=== PATIENT | female | born 1950 | race Caucasian/White ===

== ENCOUNTER 2018-02-08 05:55 | Day surgery (SDC) | payer MEDICARE, OTHER ==
[2018-02-04 14:26] LABS: BASOPHILS % (AUTO) 0.5 % (0-1); EOSINOPHILS # (AUTO) 0.2 X10'3 (0-0.9); EOSINOPHILS % (AUTO) 2.4 % (0-6); LYMPHOCYTES # (AUTO) 2.1 X10'3 (1.1-4.8); LYMPHOCYTES % (AUTO) 30.8 % (21-51); MEAN CORPUSCULAR HEMOGLOBIN 29.8 PG (27.0-31.0); MEAN CORPUSCULAR HGB CONC 33.8 % (33.0-36.5); MEAN CORPUSCULAR VOLUME 88.1 FL (78-98); MEAN PLATELET VOLUME 7.7 FL (7.4-10.4); MONOCYTES # (AUTO) 0.4 X10'3 (0-0.9); MONOCYTES % (AUTO) 6.4 % (2-12); NEUTROPHILS # (AUTO) 4.1 X10'3 (1.8-7.7); NEUTROPHILS % (AUTO) 59.9 % (42-75); PRE OP HEMATOCRIT 41.6 % (35.0-45.0); PRE OP HEMOGLOBIN 14.1 g/dL (12.0-16.0); PRE OP PLATELET COUNT 326 X10'3 (140-440); RED BLOOD COUNT 4.73 X10'6 (4.20-5.60); RED CELL DISTRIBUTION WIDTH 15.7 % (11.5-14.5)
[2018-02-04 14:37] LABS: PRE OP PROTIME 10.1 SECONDS (9.0-12.0)
[2018-02-04 14:41] LABS: HEMOGLOBIN A1C 6.2 % (4.5-6.2)
[2018-02-04 14:49] LABS: ALBUMIN 3.4 G/DL (3.4-5.0); ALBUMIN/GLOBULIN RATIO 1.1 (1.1-1.5); ALKALINE PHOSPHATASE 59 IU/L (46-116); BLOOD UREA NITROGEN 20 MG/DL (7-18); CALCIUM 8.9 MG/DL (8.5-10.1); CHLORIDE 104 MMOL/L (99-107); PRE OP ALT 27 U/L (30-65); PRE OP ANION GAP 8 (8-16); PRE OP AST 17 U/L (10-37); PRE OP BILIRUB, TOTAL 0.5 MG/DL (0.0-1.0); PRE OP GLUCOSE 103 MG/DL (70-104); PRE OP POTASSIUM 4.3 MMOL/L (3.4-5.1); PRE OP SODIUM 141 MMOL/L (135-145); TOTAL CARBON DIOXIDE 29.5 MMOL/L (24-32); TOTAL PROTEIN 6.5 G/DL (6.4-8.2); eGFR 55 ML/MIN
[~2018-02-08] VITALS: Ht 162.6 cm; Wt 89.1 kg
[2018-02-08] VITALS (17 sets, daily range): BP systolic 98–158; BP diastolic 50–93
[~2018-02-08 05:55] MED LIST: ATOR10TA87 PO; CETI-102 PO; LEVO112T5 PO; METF500T7 PO; PREVCR VG; RAMI2.5C2 PO; ceFOXitin 2 GM ADDvantage bag 100 ML IV ONE; famotidine 20mg tablet PO ONE
[2018-02-08] MEDS ORDERED: LIDOcaine 1% (10mg/ml) 2ml vial ONE (06:12)
[2018-02-08] MEDS: ringers solution, lacted 1,000 ML IV SCH ×5 (06:13→23:11)
[2018-02-08] MEDS ORDERED: ceFAZolin 1000mg inj ONE (06:54)
[2018-02-08] MEDS ORDERED: BUPIVAcaine/PF 2.5mg/ml (0.25%) 10ml vial ONE (06:54)
[2018-02-08] MEDS ORDERED: clindamycin phosphate 40gm vag cream ONE (06:54)
[2018-02-08] MEDS ORDERED: LIDOcaine 1% 30ml preserv. free vial ONE (06:54)
[2018-02-08] MEDS ORDERED: vasoPRESSIN 20 units/ml inj. ONE (06:55)
[2018-02-08] MEDS ORDERED: morphine 10mg/ml inj. ONE (06:57)
[2018-02-08] MEDS ORDERED: ringers solution, lacted 1,000 ML IV SCH (08:04)
[2018-02-08] MEDS ORDERED: fentaNYL/PF 50MCG/1 ML 2ML syringe IV PRN ×2 (08:05)
[2018-02-08] MEDS ORDERED: hydrALAZINE 20mg/ml inj. IV PRN (08:05)
[2018-02-08] MEDS ORDERED: morphine 4 MG/ML inj SYRINge IV PRN ×2 (08:05)
[2018-02-08] MEDS ORDERED: ondansetron/PF 4mg/2ml inj IV PRN ×2 (08:05→10:50)
[2018-02-08] MEDS ORDERED: labetalol 20mg/4ml (5mg/ml) syringe IV PRN (08:05)
[2018-02-08] MEDS ORDERED: sevoflurane 250ml liquid IH ONE (08:10)
[2018-02-08] MEDS ORDERED: fentaNYL/PF 50MCG/1 ML 2ML syringe ONE (08:11)
[2018-02-08] MEDS ORDERED: midazolam 2 mg/2 ml injection ONE (08:11)
[2018-02-08] MEDS ORDERED: LIDOcaine 2% (20mg/ml) 5ml vial ONE (08:12)
[2018-02-08] MEDS ORDERED: propofol inj 20 ML IV ONE (08:12)
[2018-02-08] MEDS ORDERED: dexamethasone sod phosphate 4mg/ml inj. ONE (08:12)
[2018-02-08] MEDS ORDERED: rocuronium 10mg/ml inj IV ONE (08:13)
[2018-02-08] MEDS ORDERED: neostigmine methylsulfate 1 MG/ML 10ml vial ONE (08:13)
[2018-02-08] MEDS ORDERED: ondansetron/PF 4mg/2ml inj ONE (08:13)
[2018-02-08] MEDS ORDERED: glycopyrrolate 0.2mg/ml inj ONE (08:13)
[2018-02-08] MEDS ORDERED: atropine 0.4 mg/ml 20ml vial ONE (09:04)
[2018-02-08] MEDS ORDERED: fluoroscein sod 10% (100mg/ml) 5ml vial ONE (09:25)
[2018-02-08] MEDS ORDERED: HYDROcodone/acetaminophen 5mg/325mg tablet PO PRN ×2 (10:50)
[2018-02-08] MEDS ORDERED: ketorolac tromethamine 15mg/ml inj. IV PRN (10:50)
[2018-02-08] MEDS ORDERED: magnesium hydroxide 30ml (MOM) UD suspension PO PRN (10:50)
[2018-02-08] MEDS ORDERED: CADD PCA waste documentation MC PRN (10:50)
[2018-02-08] MEDS ORDERED: naloxone 0.4 mg/ml inj IV PRN (10:50)
[2018-02-08] MEDS ORDERED: normal saline 500ml IV soln 500 ML IV PRN (10:50)
[2018-02-08] MEDS ORDERED: diphenhydrAMINE 50 mg/ml inj IV PRN (10:50)
[2018-02-08] MEDS ORDERED: temazepam 15mg capsule PO PRN (10:50)
[2018-02-08] MEDS: HYDROmorphone/NS 1 mg/ml CADD 50 ML IV SCH ×7 (11:03→23:00)
[2018-02-08] MEDS: simethicone 80mg chew tab PO SCH ×2 (13:28→17:23)
[2018-02-08] MEDS: metFORMIN 500mg tablet PO SCH (17:23)
[2018-02-08] MEDS: docusate sod 100mg capsule PO SCH (20:18)
[2018-02-08] MEDS ORDERED: atorvastatin 10mg tablet PO SCH (21:00)
[2018-02-09] MEDS: HYDROmorphone/NS 1 mg/ml CADD 50 ML IV SCH ×7 (01:00→13:00)
[2018-02-09 04:28] LABS: BASOPHILS % (AUTO) 0.3 % (0-1); EOSINOPHILS # (AUTO) 0.1 X10'3 (0-0.9); EOSINOPHILS % (AUTO) 1.1 % (0-6); HEMATOCRIT 37.4 % (35.0-45.0); HEMOGLOBIN 12.6 g/dl (12.0-16.0); LYMPHOCYTES # (AUTO) 1.3 X10'3 (1.1-4.8); LYMPHOCYTES % (AUTO) 16.4 % (21-51); MEAN CORPUSCULAR HEMOGLOBIN 29.5 PG (27.0-31.0); MEAN CORPUSCULAR HGB CONC 33.6 % (33.0-36.5); MEAN CORPUSCULAR VOLUME 87.8 FL (78-98); MEAN PLATELET VOLUME 8.1 FL (7.4-10.4); MONOCYTES # (AUTO) 0.7 X10'3 (0-0.9); MONOCYTES % (AUTO) 8.7 % (2-12); NEUTROPHILS % (AUTO) 73.5 % (42-75); PLATELET COUNT 264 X10'3 (140-440); RED BLOOD COUNT 4.26 X10'6 (4.20-5.60); RED CELL DISTRIBUTION WIDTH 15.2 % (11.5-14.5); WHITE BLOOD COUNT 8.1 X10'3 (4.5-11.0)
[2018-02-09 07:00] VITALS: BP 99/89
[2018-02-09] MEDS ORDERED: levoTHYROXINE 112mcg tablet PO SCH (07:00)
[2018-02-09] MEDS ORDERED: cetirizine 10mg tablet PO SCH (08:00)
[2018-02-09] MEDS ORDERED: lisinopril 5mg tablet PO SCH (08:00)
[2018-02-09] MEDS: docusate sod 100mg capsule PO SCH (08:01)
[2018-02-09] MEDS: metFORMIN 500mg tablet PO SCH ×2 (08:01→17:30)
[2018-02-09] MEDS: simethicone 80mg chew tab PO SCH ×2 (08:01→13:10)
[2018-02-09] MEDS: ringers solution, lacted 1,000 ML IV SCH (10:46)
[2018-02-09 11:09] VITALS: BP 117/66
== END 2018-02-09 18:05 | disposition home or self-care (01) ==
LOC: PRE-OP 05:55 → SUR 3N 11:44 → PRE-OP 02-09 18:05
PROVIDERS: ATTEND Specialist
DX: D25.2 Subserosal leiomyoma of uterus (principal); N73.6 Female pelvic peritoneal adhesions (postinfective); N85.8 Other specified noninflammatory disorders of uterus; N39.46 Mixed incontinence; E66.9 Obesity, unspecified; N95.2 Postmenopausal atrophic vaginitis; I12.9 Hypertensive chronic kidney disease with stage 1 through stage 4 chronic kidney disease, or unspecified chronic kidney disease; E11.22 Type 2 diabetes mellitus with diabetic chronic kidney disease; N18.4 Chronic kidney disease, stage 4 (severe); E03.9 Hypothyroidism, unspecified; Z91.048 Other nonmedicinal substance allergy status; Z68.33 Body mass index [BMI] 33.0-33.9, adult; Z79.84 Long term (current) use of oral hypoglycemic drugs; Z79.891 Long term (current) use of opiate analgesic; Z88.3 Allergy status to other anti-infective agents; Z91.013 Allergy to seafood; Z87.891 Personal history of nicotine dependence; Z72.89 Other problems related to lifestyle; Z90.49 Acquired absence of other specified parts of digestive tract; Z90.89 Acquired absence of other organs; Z79.899 Other long term (current) drug therapy; Z98.890 Other specified postprocedural states
CPT/HCPCS: 36415; 57240; 57283; 57288; 58552; 80053; 82948; 83036; 84443; 85025; 85610; 85730; 86885; 86900; 86901; A4315; A4355; A6255; C1771; J0461; J0690; J0694; J1100; J1170; J1885; J2001; J2250; J2270; J2405; J2704; J2710; J3010; J3490; J7030; J7120; A6250; A7000